=== PATIENT | female | born 1975 | race Two or more races ===

== ENCOUNTER 2016-12-26 21:21 | Emergency (ER) | payer MEDICAID ==
[~2016-12-26] VITALS: Ht 154.9 cm; Wt 59.0 kg
--- NOTE | 2016-12-26 21:54 | NUR ---
PT BIB FAMILY C/O L LOWER ANTERIOR RIBCAGE PAIN 7/10 S/P SLIP AND FALL ON HER SON'S CARSEAT. RIBCAGE TENDER TO PALP IN ONE LOCALIZED AREA, WHICH ALSO FEELS PAIN ON DEEP INHALATION. NAD NOTED. RESP EVEN UNLABORED. SKIN WARM NONDIAPHORETIC. AMBULATORY WITH STEADY GAIT.
[2016-12-26] MEDS ORDERED: IBUPROFEN 400 MG TABLET ONE (22:17)
[2016-12-26] MEDS ORDERED: IBUPROFEN 400 MG TABLET PO ONE (22:30)
[2016-12-26 23:22] VITALS: BP 124/58
--- NOTE | 2016-12-26 23:23 | NUR ---
Patient discharged to home in stable condition. Written and verbal after care instructions given. Patient verbalizes understanding of instruction. ambulatory with a steady gait
== END 2016-12-26 23:23 | disposition home or self-care (01) ==
LOC: ER 21:23
DX: S20.212A Contusion of left front wall of thorax, initial encounter (principal); W19.XXXA Unspecified fall, initial encounter; Y93.89 Activity, other specified; Y92.89 Other specified places as the place of occurrence of the external cause; Y99.9 Unspecified external cause status
CPT/HCPCS: 71100; 99284; A4606; Z7610

== ENCOUNTER 2017-10-25 18:41 | Emergency (ER) | payer MEDICAID, OTHER ==
[~2017-10-25] VITALS: Ht 162.6 cm; Wt 56.7 kg
[2017-10-25 18:41] VITALS: BP 104/65
== END 2017-10-25 19:38 | disposition home or self-care (01) ==
LOC: ER 18:44
DX: M79.671 Pain in right foot (principal)
CPT/HCPCS: 73630-TC; A4606; Z7610

== ENCOUNTER 2017-10-27 19:00 | Emergency (ER) | payer OTHER ==
[~2017-10-27] VITALS: Ht 162.6 cm; Wt 56.7 kg
[2017-10-27 19:00] VITALS: BP 108/60
[2017-10-27] MEDS ORDERED: KETOROLAC TROMETHAMINE INJ 30 MG/ML VIAL ONE (20:27)
[2017-10-27] MEDS ORDERED: KETOROLAC TROMETHAMINE INJ 60 MG/2 ML VIAL IM ONE (20:30)
== END 2017-10-27 20:45 | disposition home or self-care (01) ==
LOC: ER 19:01
DX: M79.671 Pain in right foot (principal)
CPT/HCPCS: 96372; 99283; A4606; J1885; Z7610

== ENCOUNTER 2018-09-17 23:17 | Emergency (ER) | payer MEDICAID, OTHER ==
[~2018-09-17] VITALS: Ht 162.6 cm; Wt 56.7 kg
[2018-09-18 00:10] VITALS: BP 124/69
== END 2018-09-18 00:42 | disposition home or self-care (01) ==
LOC: ER 23:19
DX: M72.2 Plantar fascial fibromatosis (principal); Z98.890 Other specified postprocedural states
CPT/HCPCS: 99282; A4606

== ENCOUNTER 2021-03-11 20:54 | Emergency (ER) | payer MEDICAID, OTHER ==
[~2021-03-11] VITALS: Ht 162.6 cm; Wt 56.7 kg
--- NOTE | 2021-03-11 21:07 | NUR ---
BIBS WITH C/O DIFFUSED ABD PAIN -N/V/D ; CHEST PAIN RADIATING TO NECK; RATES PAIN 6/10 X3 DAYS. PT A/OX4
--- NOTE | 2021-03-11 21:25 | NUR ---
US TECH AT BEDSIDE EKG BEING DONE
--- NOTE | 2021-03-11 21:50 | NUR ---
[employer]ES [employer]SULTANT AT BEDSIDE
--- NOTE | 2021-03-11 22:04 | NUR ---
BLOOD WORK DRAWN AND SENT TO LAB INITIATED RAC #20G PELVIC US AT BEDSIDE. PT NOT ABLE TO PROVIDE URINE AT THIS TIME; WILL TRY AGAIN LATER
[2021-03-11 22:05] LABS: BASOPHILS % (AUTO) 0.5 % (0.0-2.0); EOSINOPHILS % (AUTO) 0.7 % (0.0-6.0); HEMATOCRIT 30 % (33-45); HEMOGLOBIN 8.9 g/dL (11.5-14.8); LYMPHOCYTES # (AUTO) 1.8 K/uL (0.8-4.8); LYMPHOCYTES % (AUTO) 30.2 % (20.0-44.0); MEAN CORPUSCULAR HGB CONC 30 g/dl (31.0-36.0); MEAN CORPUSCULAR VOLUME 72 fL (82-100); MONOCYTES # (AUTO) 0.4 K/uL (0.1-1.30); MONOCYTES % (AUTO) 6.8 % (2.0-12.0); NEUTROPHILS # (AUTO) 3.7 K/uL (1.8-8.9); NEUTROPHILS % (AUTO) 61.8 % (43.0-81.0); PLATELET COUNT (AUTO) 415 K/uL (150-450); RED BLOOD CELL COUNT(AUTO) 4.09 MIL/uL (4.0-5.2)
[2021-03-11 22:19] LABS: CARBON DIOXIDE 30 mmol/L (21-32); CHLORIDE 105 mmol/L (98-107); CREATININE 0.5 mg/dL (0.6-1.3); GLUCOSE 92 mg/dL (74-106); POTASSIUM 4.6 mmol/L (3.5-5.1); SODIUM SERUM 141 mmol/L (136-145); UREA NITROGEN, BLOOD 9 mg/dL (7-18)
[2021-03-11 22:25] LABS: ALANINE AMINOTRANSFERASE 25 U/L (12-78); ALBUMIN 3.5 g/dL (3.4-5.0); ALKALINE PHOSPHATASE 47 U/L (46-116); ASPARTATE AMINOTRANSFERASE 29 U/L (15-37); BILIRUBIN,DIRECT 0.1 mg/dL (0.0-0.2); BILIRUBIN,TOTAL 0.1 mg/dL (0.2-1.0); LIPASE 99 U/L (73-393); TOTAL PROTEIN, SERUM 7.3 g/dL (6.4-8.2)
[2021-03-11] MEDS ORDERED: FERR325T23 PO (23:02)
[2021-03-11] MEDS ORDERED: DOCU-141 PO (23:02)
[2021-03-11 23:15] LABS: BILIRUBIN,URINE Negative (NEGATIVE); COLOR,URINE LIGHT YELLOW (YELLOW); LEUKOCYTE ESTERASE ,URINE Large (NEGATIVE); NITRITE, URINE Negative (NEGATIVE); PH,URINE 7.5 (5.0-8.0); PROTEIN,URINE Negative (NEGATIVE); UGLUCOSE Negative (NEGATIVE); UROBILINOGEN,URINE 0.2 EU/dL (0.2)
[2021-03-11] MEDS ORDERED: CEPH500C2 PO (23:23)
[2021-03-11 23:33] LABS: BACTERIA,URINE 2+ /HPF (None Seen); SQUAMOUS EPITHELIAL CELL,UR Few /HPF (None Seen); WBC,URINE 21-50 /HPF (0-3)
--- NOTE | 2021-03-11 23:43 | NUR ---
Patient discharged to home in stable condition. Rx and Written and verbal after care instructions given. Patient verbalizes understanding of instruction. iv removed,cath intact,
[2021-03-11 23:45] VITALS: BP 118/83
[2021-03-11 23:45] LABS: EOSINOPHILS % (MANUAL) 1 % (0-4); LYMPHOCYTES % (MANUAL) 22 % (16-48); MONOCYTES % (MANUAL) 12 % (0-11.0); NEUTROPHILS % (MANUAL) 65 (42-76)
== END 2021-03-11 23:46 | disposition home or self-care (01) ==
LOC: ER 20:58
DX: S16.1XXA Strain of muscle, fascia and tendon at neck level, initial encounter (principal); D64.9 Anemia, unspecified; R10.2 Pelvic and perineal pain; N39.0 Urinary tract infection, site not specified; Z98.890 Other specified postprocedural states; Z79.899 Other long term (current) drug therapy; X58.XXXA Exposure to other specified factors, initial encounter; Y93.89 Activity, other specified; Y92.89 Other specified places as the place of occurrence of the external cause; Y99.8 Other external cause status
CPT/HCPCS: 36415; 71045-TC; 76705-TC; 76856-TC; 80048-TC; 80076-TC; 81001; 83690-TC; 84484-TC; 84703-TC; 85025-TC; 87086-TC